=== PATIENT | female | born 1980 | race Caucasian/White ===

== ENCOUNTER 2020-03-03 14:58 | Outpatient (CLI) | payer OTHER, SELFPAY ==
--- NOTE | ~2020-03-03 | MM_ITS ---
EXAMINATION: MM screening tim BI w priyanka HISTORY: Screening mammogram TECHNIQUE: Craniocaudal and mediolateral oblique 3-D tomosynthesis images including implant displaced views were obtained and synthetic 2-D images were generated. CAD analysis was submitted and interpre yony. COMPARISON: Comparison to multiple prior studies sequentially, with oldest reviewed study dated 10/2019. BREAST PARENCHYMAL COMPOSITION: The breasts are heterogenously dense, which may obscure small masses FINDINGS: There are bilateral subpectoral silicone implants. There is no evidence of suspicious mass, calcification, or architectural distortion to suggest malignancy in either breast. There has been no suspicious interval change. IMPRESSION: 1. No mammographic evidence of malignancy. 2. Recommend routine screening mammography in one year. BI-RADS Category 1: Negative Reviewed, dictated and finalized at location A.
== END 2020-03-03 14:59 | disposition home or self-care (01) ==
LOC: ANHIMG 15:03
PROVIDERS: PCP Family Medicine; Visit Provider Family Medicine
DX: Z12.31 Encounter for screening mammogram for malignant neoplasm of breast (principal)
CPT/HCPCS: 77063; 77067

== ENCOUNTER → 2020-05-12 11:10 | Outpatient (CLI) | payer OTHER, SELFPAY ==
--- NOTE | ~2020-05-12 | XR_ITS ---
XR hip LT min 3V w AP pelvis DATE: 05/12/2020 11:22 INDICATION: Left hip pain for 5 months. No injury. TECHNIQUE: AP pelvis. AP and lateral views of left hip COMPARISON: None FINDINGS: No pelvic fracture or bone destruction. The pubic symphysis and sacral iliac joints are int act. Hip joint spaces are symmetric and well preserved. No fracture, dislocation, avascular necrosis or bone destruction of the left hip. IMPRESSION: No significant abnormality Reviewed, dictated and finalized at location A. IMPRESSION: No significant abnormality
== END ==
PROVIDERS: PCP Family Medicine; Visit Provider Family Medicine
DX: M25.559 Pain in unspecified hip (principal)
CPT/HCPCS: 73502

== ENCOUNTER → 2021-09-19 07:58 | Outpatient (CLI) | payer OTHER, SELFPAY ==
--- NOTE | ~2021-09-19 | MR_ITS ---
EXAMINATION: MR brain/brain stem wo con DATE: 09/19/2021 08:39 INDICATION: Migraine headache. TECHNIQUE: Magnetic resonance imaging (MRI) of the brain and brainstem was performed without intraven ous contrast. Sequences included sagittal and axial T1-weighted FSE, axial diffusion-weighted FS EPI, axial T2*-weighted GRE, axial T2-weighted FLAIR Propeller, and axial T2-weighted Propeller. Apparent diffusion coefficient (ADC) maps were created. COMPARISON: None. FINDINGS: There is no intracranial hemorrhage, acute infarction, or abnormal intracranial mass lesion . The ventricles are normal in size. There is mild mucosal thickening in the paranasal sinuses. The o rbits are normal. The mastoid air cells are normal. IMPRESSION: 1. Normal brain. Reviewed, dictated and finalized at location A. REDUCER IMPRESSION: 1. Normal brain.
== END ==
PROVIDERS: PCP Family Medicine; Visit Provider Family Medicine
DX: G43.109 Migraine with aura, not intractable, without status migrainosus (principal); R48.2 Apraxia
CPT/HCPCS: 70551

== ENCOUNTER 2022-04-29 14:35 | Outpatient (CLI) | payer OTHER, SELFPAY ==
--- NOTE | ~2022-04-29 | MM_ITS ---
EXAMINATION: MM scrn tim implant BI w priyanka HISTORY: Screening mammogram TECHNIQUE: Craniocaudal and mediolateral oblique 3-D tomosynthesis images with implant displacement a nd synthetic 2-D images were generated. Craniocaudal and mediolateral oblique views of the breasts wi thout implant displacement were obtained using full field digital mammography. CAD analysis was submi tted and interpreted. COMPARISON: 03/03/2020 bilateral implant screening mammogram BREAST PARENCHYMAL COMPOSITION: The breasts are extremely dense, which lowers the sensitivity of mamm ography. FINDINGS: Status post bilateral augmentation mammoplasty. There is no evidence of suspicious mass, ca lcification, or architectural distortion to suggest malignancy in either breast. There has been no blake spicious interval change. IMPRESSION: 1. No mammographic evidence of malignancy. 2. Recommend routine screening mammography in one year. BI-RADS Category 1: Negative Reviewed, dictated and finalized at location B.
== END 2022-04-29 14:36 | disposition home or self-care (01) ==
PROVIDERS: PCP Family Medicine; Visit Provider Nurse Practitioner Obstetrics & Gynecology
DX: Z12.31 Encounter for screening mammogram for malignant neoplasm of breast (principal)
CPT/HCPCS: 77063; 77067

== ENCOUNTER → 2022-05-11 12:35 | Outpatient (CLI) | payer OTHER, SELFPAY ==
--- NOTE | ~2022-05-11 | US_ITS ---
EXAMINATION: US pelvic complete w TV DATE: 05/11/2022 13:18 INDICATION: Pelvic and perineal pain Comparison:No prior studies for comparison. TECHNIQUE: Multiple transabdominal and endovaginal sonographic images of the pelvis performed. FINDINGS: The uterus measures 10.3 x 4.3 x 5.1 cm. The endometrial complex measures 5 mm. There is an isoechoic mass of the uterus anteriorly measuring 2.1 cm, most likely benign fibroid. There are nabo thian cysts. The right ovary measures 3.6 x 2.1 x 2 cm and the left ovary measures 3.1 x 1.6 x 2.4 cm. There are small follicles in each ovary. There are small bilateral ovarian cyst measuring 1.7 cm on the right a nd 1.9 cm on the left. Normal doppler signal in both ovaries. There is no free fluid in the pelvis. There are no abnormal masses seen on either side. IMPRESSION: 1. Enlarged uterus containing 2.1 cm isoechoic mass, most likely a fibroid. 2: Small bilateral ovarian cysts. Reviewed, dictated and finalized at location A.
== END ==
PROVIDERS: PCP Family Medicine; Visit Provider Nurse Practitioner Obstetrics & Gynecology
DX: R10.2 Pelvic and perineal pain (principal); N83.201 Unspecified ovarian cyst, right side; N83.202 Unspecified ovarian cyst, left side
CPT/HCPCS: 76830; 76856

== ENCOUNTER → 2023-02-16 14:04 | Outpatient (CLI) | payer OTHER, SELFPAY ==
--- NOTE | ~2023-02-16 | XR_ITS ---
XR shoulder LT min 2V 02/16/2023 14:15 INDICATION: Left shoulder pain PROCEDURE: 4 views left shoulder COMPARISON: No prior studies for comparison. FINDINGS: Fracture, dislocation or subluxation is not identified. The soft tissues appear within norm al limits. No foreign bodies are identified. IMPRESSION: 1: NO ACUTE BONE OR JOINT ABNORMALITY IDENTIFIED. Reviewed, dictated and finalized at location B.
== END ==
PROVIDERS: PCP Family Medicine; Visit Provider Family Medicine
DX: M25.512 Pain in left shoulder (principal)
CPT/HCPCS: 73030

== ENCOUNTER → 2023-02-25 09:11 | Outpatient (CLI) | payer OTHER, SELFPAY ==
--- NOTE | ~2023-02-25 | MR_ITS ---
MRI of the left shoulder Technique: Axial proton-density fat-sat images, coronal proton density fat-sat and T2 fat-sat images, and sagittal T1-weighted and T2 fat-sat images were acquired. Clinical History: Injury Findings: There is mild AC joint degenerative change. Coracoclavicular, coracoacromial, and coracohum eral ligaments are intact. Supraspinatus and infraspinatus tendons are intact, without partial or full-thickness tear. Subscapul zaida tendon is intact. Tendon of the long head of the biceps is intact. Glenoid labrum is intact, without evidence of tear. Inferior glenohumeral ligament is intact. No effusion or degenerative change at the glenohumeral join t. No significant fluid distention of the subacromial/subdeltoid bursa. No muscle atrophy or edema. Impression: No significant abnormality identified. Reviewed, dictated and finalized at [facility]. Impression: No significant abnormality identified.
== END ==
PROVIDERS: PCP Family Medicine; Visit Provider Family Medicine
DX: S46.002A Unspecified injury of muscle(s) and tendon(s) of the rotator cuff of left shoulder, initial encounter (principal); X58.XXXA Exposure to other specified factors, initial encounter
CPT/HCPCS: 73221

== ENCOUNTER 2024-03-06 12:30 | Outpatient (RCR) | payer OTHER, SELFPAY ==
--- NOTE | 2023-12-13 17:00 | PTOPEVAL1 ---
Assessment and note entered by Jaron Zelaya, PT Evaluation Information Assessment Status Evaluation Diagnosis Left shoulder pain Onset December 2020 Subjective Information Reports that at initial time of injury she hurt her neck and moved into arm pain. Unsure if they were directly related. States that she has ignored it over the years but she has been getting massages to help. Over the course of the last three months she has not been able to improve symptoms. She is a side sleeper and wakes up with pain. Driving hurts and certain exercises she cannot do. She had an MRI last summer showing mild arthritis. Reports that she will occasional get a cold and numb hand at her side. Reported Pain Level Pain Score 1: Self Report Assessment PT Clinical Summary Patient presents with signs and symptoms consistent with frozen shoulder. She has active range of motion equal to passive ROM with pain at end range. Patient has weakness but not significant enough to reflect severe muscle damage . Limited more by pain. Will benefit from skilled therapy to address deficits to improve functional reach and restore age appropriate functional shoulder motion. Plan of Care Interventions Electrical Stimulation,Hot Pack/Cold Pack,Manual Therapy,Neuro Re-education,Therapeutic Activities, Therapeutic Exercise PT Services Indicated Yes Treatment Frequency and 2x/week for 10 visits Duration These treatments will address the objective and functional deficits as defined above. The patient will be advanced safely and appropriately in order for the patient to progress towards his/her prior level of function. Additional exercises will be introduced and as well as a comprehensive home exercise program upon discharge, if needed, ?to ensure carryover of functional gains achieved in the clinic. This treatment plan has been reviewed and agreement upon by the patient.
--- NOTE | 2023-12-13 17:00 | OPREHPOC ---
Outpatient Therapy Plan of Care This is a Multidisciplinary Plan of Care that may contain components documented by all disciplines (PT, OT, and ST.) PT Problem 1 PT Problem #1 Knowledge Deficit PT Goal 1 Goal Independent with HEP Target Visit 4 PT Problem 2 PT Problem #2 Impaired Range of Motion PT Goal 1 Goal Achieve 170 degrees of L shoulder flexion ROM to improve active functional reach Target Visit 10 PT Goal 2 Goal Achieve 80 degrees of left shoulder external rotation to improve dressing and functional self care Target Visit 10 PT Problem 3 PT Problem #3 Impaired Range of Motion PT Goal 1 Goal Achieve 90 degrees of abduction to achieve anatomical testing position to restore functional rotation ability Target Visit 10 PT Problem 4 PT Problem #4 Impaired Strength PT Goal 1 Goal Improve gross L shoulder strength to 4+/5 to improve stability for functional lifting Target Visit 10
--- NOTE | 2024-01-12 08:34 | PCPTNOTE ---
Patient unable to been seen January 10 due to therapist out with illness.
--- NOTE | 2024-01-20 17:03 | PTOPPROG ---
Assessment and note entered by Jaron Zelaya, PT Evaluation Information Assessment Status Progress Diagnosis Left shoulder pain Onset December 2020 Subjective Information Reports that she has been working very hard on mobility and is seeing progress. Feels a lot more comfortable with stretching and mobilization activity. She feels she is able to improve her self care but is not quite where she want to be. Would like to continue therapy. Assessment PT Clinical Summary Patient is making excellent RM and functional progress at this time. We have seen in proved functional mobility of the shoulder and overall functional reach. Will continue to benefit from skilled therapy to address remaining deficits and progress in self care. Plan of Care Interventions Electrical Stimulation,Hot Pack/Cold Pack,Manual Therapy,Neuro Re-education,Therapeutic Activities, Therapeutic Exercise PT Services Indicated Yes Treatment Frequency and 2x/week for 10 visits Duration These treatments will address the objective and functional deficits as defined above. The patient will be advanced safely and appropriately in order for the patient to progress towards his/her prior level of function. Additional exercises will be introduced and as well as a comprehensive home exercise program upon discharge, if needed, ?to ensure carryover of functional gains achieved in the clinic. This treatment plan has been reviewed and agreement upon by the patient.
--- NOTE | 2024-01-20 17:03 | OPREHPOC ---
Outpatient Therapy Plan of Care This is a Multidisciplinary Plan of Care that may contain components documented by all disciplines (PT, OT, and ST.) PT Problem 1 PT Problem #1 Knowledge Deficit PT Goal 1 Goal Independent with HEP Target Visit 4 Progress Met PT Problem 2 PT Problem #2 Impaired Range of Motion PT Goal 1 Goal Achieve 170 degrees of L shoulder flexion ROM to improve active functional reach Target Visit 18 Progress Partially Met PT Goal 2 Goal Achieve 80 degrees of left shoulder external rotation to improve dressing and functional self care Target Visit 18 Progress Met PT Problem 3 PT Problem #3 Impaired Range of Motion PT Goal 1 Goal Achieve 90 degrees of abduction to achieve anatomical testing position to restore functional rotation ability Target Visit 10 Progress Met PT Problem 4 PT Problem #4 Impaired Strength PT Goal 1 Goal Improve gross L shoulder strength to 4+/5 to improve stability for functional lifting Target Visit 18 Progress Partially Met
--- NOTE | 2024-03-06 16:44 | PTOPDC ---
Assessment and note entered by Jaron Zelaya, PT Evaluation Information Assessment Status Discharge Diagnosis Left shoulder pain Onset December 2020 Subjective Information Reports that she has seen remarkable progress at this time. Feels a lot more comfortable with ADLs and self care. She really only gets pain when reaching overhead repeatedly or doing activities that she has not done consistently for a long time . She has pulleys at home and feels comfortable with gross HEP to continue to progressing motion and prevent regression. Reported Pain Level Pain Score 0: Self Report Assessment PT Clinical Summary Patient has met all goals for therapy at this time . She continues to show some limitation in external rotation and will continue to address through home exercise program. Plan of Care PT Services Indicated D/C to HEP
== END 2024-03-07 09:36 | disposition home or self-care (01) ==
LOC: ANHGOSHPT 12:30
PROVIDERS: PCP Family Medicine; Visit Provider Family Medicine
DX: M25.512 Pain in left shoulder (principal); G89.29 Other chronic pain
CPT/HCPCS: 97110; 97140; 97161; 97530

== ENCOUNTER 2024-05-02 06:59 | Day surgery (SDC) | payer OTHER, SELFPAY ==
[2024-04-10 13:41] VITALS: BMI 20.1
--- NOTE | 2024-05-01 13:13 | WPDANESEPPF ---
Anes - Initial Pre Proc Eval Procedure: Operation Date: 05/02/24 09:00 Proposed Procedures p Screening Colonoscopy - Remington Otto MD Date/Time: 05/01/24 13:13 Surgeon: Remington Otto MD Pre Op Diagnosis: Neoplasm Screening Patient Data Age: 43 Gender: F Height: 1.65 m Weight: 54.8 kg Allergies Allergy/AdvReac Type Severity Reaction Status Date / Time estradiol AdvReac Unknown Migraine Verified 05/02/24 07:43 fluoxetine AdvReac Unknown headache Verified 05/02/24 07:43 propoxyphene AdvReac Vomiting Verified 05/02/24 07:43 Home Medications Medication Instructions Recorded Confirmed Type cholecalciferol (vitamin D3) 25 100 mcg PO DAILY 03/04/21 05/02/24 History mcg/drop (1,000 unit/drop) oral drops vitamin B complex (B 1 tablet PO DAILY 09/08/21 04/24/24 History Complex-Vitamin B12 tablet) polypodium leucotomos extract 120 1 cap PO DAILY 03/29/23 05/02/24 History mg-niacinamide 250 mg capsule ([facility] Advanced) fluticasone propionate 50 1 spray intranasal DAILY #16 grams 11/16/23 05/02/24 Rx mcg/actuation nasal spray,suspension (Flonase Allergy Relief) sumatriptan succinate 50 mg tablet See Rx Instructions .Route 12/07/23 05/02/24 Rx .COMPLEX #27 tabs topiramate 50 mg tablet 100 mg PO QHS #180 tabs 02/09/24 04/24/24 Rx fexofenadine 180 mg tablet 180 mg PO DAILY 03/27/24 05/02/24 History ([facility] All[facility]) methylphenidate HCl 36 mg 36 mg PO QAM #30 tabs 03/27/24 05/02/24 Rx tablet,extended release 24 hr (Concerta) [id number] 1 tablet PO DAILY 03/27/24 05/02/24 History fumarate 18 mg-folic acid 400 mcg tablet (One-A-Day Women's Complete) Lactobacillus 1 cap PO DAILY 04/24/24 05/02/24 History acidophilus-Bifidobac.animalis 2.5 billion cell capsule (Daily Probiotic) buspirone 10 mg tablet 10 mg PO TID 04/24/24 05/02/24 History magnesium 500 mg tablet 500 mg PO DAILY 04/24/24 05/02/24 History Patient hx anesthesia problems: none Family hx anesthesia problems: none Results Review: All pre-operative results and documents have been reviewed as part of the pre-operative evaluation. [facility], LAT[facility] Past Medical History Medical History (Updated 05/02/24 @ 08:06 by Remington Otto MD) Acute telogen effluvium ADHD Bursitis of right hip GERD without esophagitis Herpes simplex without mention of complication Other ventral hernia without mention of obstruction or gangrene Surgical History Surgical History (Updated 05/01/24 @ 13:29 by Wojciech Lewis DO) History of tonsillectomy Family History Family History Mother Depression Hypertension DVT (deep venous thrombosis) Father Hypertension Other Cerebrovascular accident Diabetes mellitus Family history of allergic disorder Family history of cardiovascular disease Social History Social History (Updated 03/27/24 @ 10:49 by Mattie Bhatia MA) Smoking status: Never smoker Second hand tobacco smoke exposure: Yes Alcohol intake: current Alcohol use details: 2 per month Substance use: never Substance use type: does not use Lack of Transportation: No Lack of Food: Never True Current Housing: I Have Housing Concerned About Future Housing: No Difficulty Paying Gas/Electric Bills: No Difficulty Paying for Meds: No Currently Unemployed: No Education: Master's Degree or Higher Difficulty w/ Childcare or Family Care: No Living arrangements: with family Spiritual care concerns: No Anes - Eval Final PreProcedure Day of Procedure 05/01/24 13:13 Patient weight: normal Heart: regular rate and rhythm Lungs: clear to auscultation and normal air movement Airway: Mallampati scale class II Neurological: alert and oriented Last oral intake: >/= 8 hours ASA classification: II Emergent: no Anesthetic plan: proceed Anesthesia type and monitoring: general GIVS and
[2024-05-02 07:54] VITALS: BP 93/61; PULSE 82; RESP 16; TEMP 36.7; O2SAT 100; BMI 19.7
--- NOTE | 2024-05-02 08:05 | PM.HPGS ---
History of Present Illness History of Present Illness Consent: Risks, benefits, and alternatives have been discussed and questions answered. Patient agrees to proceed with procedure. Chief complaint: Neoplasm Screening Narrative: Caitlin Perdue is a 43 year old female presents for screening colonoscopy. Patient's current weight appetite and bowel movements are normal. Patient denies abdominal pain. Has had no bleeding. Family history noncontributory. Review of Systems Review of Systems: All systems reviewed & are unremarkable except as noted in HPI and below PMFSH Past Medical History Medical History (Updated 05/02/24 @ 08:06 by Remington Otto MD) Acute telogen effluvium ADHD Bursitis of right hip GERD without esophagitis Herpes simplex without mention of complication Other ventral hernia without mention of obstruction or gangrene Surgical History Surgical History (Updated 05/01/24 @ 13:29 by Wojciech Lewis DO) History of tonsillectomy Family History Family History Mother Depression Hypertension DVT (deep venous thrombosis) Father Hypertension Other Cerebrovascular accident Diabetes mellitus Family history of allergic disorder Family history of cardiovascular disease Social History Social History (Updated 03/27/24 @ 10:49 by Mattie Bhatia MA) Smoking status: Never smoker Second hand tobacco smoke exposure: Yes Alcohol intake: current Alcohol use details: 2 per month Substance use: never Substance use type: does not use Lack of Transportation: No Lack of Food: Never True Current Housing: I Have Housing Concerned About Future Housing: No Difficulty Paying Gas/Electric Bills: No Difficulty Paying for Meds: No Currently Unemployed: No Education: Master's Degree or Higher Difficulty w/ Childcare or Family Care: No Living arrangements: with family Spiritual care concerns: No Meds Home Medications and Allergies Home Medications Medication Instructions Recorded Confirmed Type cholecalciferol (vitamin D3) 25 100 mcg PO DAILY 03/04/21 05/02/24 History mcg/drop (1,000 unit/drop) oral drops vitamin B complex (B 1 tablet PO DAILY 09/08/21 04/24/24 History Complex-Vitamin B12 tablet) polypodium leucotomos extract 120 1 cap PO DAILY 03/29/23 05/02/24 History mg-niacinamide 250 mg capsule ([facility] Advanced) fluticasone propionate 50 1 spray intranasal DAILY #16 grams 11/16/23 05/02/24 Rx mcg/actuation nasal spray,suspension (Flonase Allergy Relief) sumatriptan succinate 50 mg tablet See Rx Instructions .Route 12/07/23 05/02/24 Rx .COMPLEX #27 tabs topiramate 50 mg tablet 100 mg PO QHS #180 tabs 02/09/24 04/24/24 Rx fexofenadine 180 mg tablet 180 mg PO DAILY 03/27/24 05/02/24 History ([facility] Allergy) methylphenidate HCl 36 mg 36 mg PO QAM #30 tabs 03/27/24 05/02/24 Rx tablet,extended release 24 hr (Concerta) [id number]-[id number] 1 tablet PO DAILY 03/27/24 05/02/24 History fumarate 18 mg-folic acid 400 mcg tablet (One-A-Day Women's Complete) Lactobacillus 1 cap PO DAILY 04/24/24 05/02/24 History acidophilus-Bifidobac.animalis 2.5 billion cell capsule (Daily Probiotic) buspirone 10 mg tablet 10 mg PO TID 04/24/24 05/02/24 History magnesium 500 mg tablet 500 mg PO DAILY 04/24/24 05/02/24 History Allergies Allergy/AdvReac Type Severity Reaction Status Date / Time estradiol AdvReac Unknown Migraine Verified 05/02/24 07:43 fluoxetine AdvReac Unknown headache Verified 05/02/24 07:43 propoxyphene AdvReac Vomiting Verified 05/02/24 07:43 Vital Signs Vital Signs - 24 hr 05/02/24 07:54 Temperature 98.1 F Pulse Rate 82 Respiratory Rate 16 Blood Pressure 93/61 L Pulse Oximetry 100 Oxygen Delivery Room Air Exam Narrative: Physical exam reveals patient to be alert. Signs stable. HEENT exam is unrem
[2024-05-02] MEDS: LACTATED RINGERS 1,000 ML 150 ML IV CONT (08:11)
[2024-05-02 09:20] VITALS: BP 92/48; PULSE 84; RESP 14; O2SAT 100
[2024-05-02 09:30] VITALS: BP 97/56; PULSE 66; RESP 15; O2SAT 100
--- NOTE | 2024-05-02 09:31 | WPDANESPN ---
Anes - Prog Note Post-Op Date/Time: 05/02/24 09:31 Cardiovascular status: normal Respiratory status: normal Airway patency: baseline Mental status: baseline Post-Op hydration status: normal Vital Signs: Last Vital Signs Temp 36.7 C 05/02/24 07:54 Pulse 84 05/02/24 09:20 Resp 14 05/02/24 09:20 BP 92/48 L 05/02/24 09:20 Pulse Ox 100 05/02/24 09:20 O2 Del Method Room Air 05/02/24 09:20 Pain Score (VAS): 0 Post-procedural complaints: none Patient Feedback: Patient satisfied with anesthetic care. Other Findings: Patient vital signs back to baseline. Patient denies nausea and vomiting. Patient's pain under control. Patient OK for discharge.
[2024-05-02 09:40] VITALS: BP 96/61; PULSE 66; RESP 15; O2SAT 100
== END 2024-05-02 10:00 | disposition home or self-care (01) ==
PROVIDERS: PCP Family Medicine; Visit Provider Internal Medicine Gastroenterology
PROC: 0DJD8ZZ Inspection of Lower Intestinal Tract, Via Natural or Artificial Opening Endoscopic (ICD-10-PCS; CPT 45378; principal; 2024-05-02 09:00)
DX: Z12.11 Encounter for screening for malignant neoplasm of colon (principal); D12.5 Benign neoplasm of sigmoid colon; K57.30 Diverticulosis of large intestine without perforation or abscess without bleeding; K64.8 Other hemorrhoids
CPT/HCPCS: 45385

== ENCOUNTER 2024-05-02 12:22 | Outpatient (NON) | payer OTHER, SELFPAY | END 2024-05-03 10:11 | disposition home or self-care (01) | PROVIDERS: PCP Family Medicine; Visit Provider Internal Medicine Gastroenterology | DX: K63.5 Polyp of colon (principal) | CPT/HCPCS: 88305 ==

== ENCOUNTER 2024-07-19 15:30 | Outpatient (CLI) | payer OTHER, SELFPAY ==
--- NOTE | ~2024-07-19 | MM_ITS ---
EXAMINATION: MM scrn tim implant BI w priyanka HISTORY: Screening mammogram TECHNIQUE: Craniocaudal and mediolateral oblique 3-D tomosynthesis images with implant displacement a nd synthetic 2-D images were generated. Craniocaudal and mediolateral oblique views of the breasts wi thout implant displacement were obtained using full field digital mammography. CAD analysis was submi tted and interpreted. COMPARISON: Comparison to multiple prior studies sequentially, with oldest reviewed study dated 10/2019. BREAST PARENCHYMAL COMPOSITION: Dense: The breasts are extremely dense, which lowers the sensitivity of mammography. FINDINGS: There is a focal asymmetry laterally in the left breast on CC view, not definitely seen on prior study. The right breast is stable. IMPRESSION: 1. Focal left breast asymmetry laterally, posterior third, seen on CC view only. 2. Additional mammographic views and possible breast ultrasound are recommended. BI-RADS Category 0: Incomplete: Needs additional imaging evaluation. Reviewed, dictated and finalized at location B. IMPRESSION: 1. Focal left breast asymmetry laterally, posterior third, seen on CC view only . 2. Additional mammographic views and possible breast ultrasound are recommended . BI-RADS Category 0: Incomplete: Needs additional imaging evaluation.
== END 2024-07-19 15:31 | disposition home or self-care (01) ==
LOC: ANHIMG 15:31
PROVIDERS: PCP Family Medicine; Visit Provider Obstetrics & Gynecology
DX: Z12.31 Encounter for screening mammogram for malignant neoplasm of breast (principal); R92.8 Other abnormal and inconclusive findings on diagnostic imaging of breast
CPT/HCPCS: 77063; 77067

== ENCOUNTER 2024-08-08 12:52 | Outpatient (CLI) | payer OTHER, SELFPAY ==
--- NOTE | ~2024-08-08 | MMUS_ITS ---
EXAMINATION: MM diagnostic tim LT w priyanka, US breast LT limited HISTORY: Follow-up left breast asymmetry TECHNIQUE: Additional 3-D tomosynthesis images of the left breast were performed and synthetic 2-D im ages were generated. CAD analysis was submitted and interpreted. High resolution Limited left breast ultrasound was performed. COMPARISON: 07/19/2024 BREAST PARENCHYMAL COMPOSITION: Dense: The breasts are extremely dense, which lowers the sensitivity of mammography. FINDINGS: MAMMOGRAPHIC FINDINGS: There is persistent asymmetry laterally in the left breast on CC view, not confirmed on medial latera l view. ULTRASOUND: Limited left breast ultrasound,: At 12:00, 5 cm from the nipple there is an irregular shaped heteroge neous mass with parallel orientation measuring 8 x 6 x 5 mm. No significant posterior features. There is internal vascularity. IMPRESSION: 1. Complex 8 mm left breast mass at 12:00, 5 cm from the nipple. 2. Ultrasound-guided left breast biopsy recommended. BI-RADS category 4, suspicious findings. Reviewed, dictated and finalized at location B. 1ST PRESSMAN IMPRESSION: 1. Complex 8 mm left breast mass at 12:00, 5 cm from the nipple. 2. Ultrasound-guided left breast biopsy recommended. BI-RADS category 4, suspicious findings.
== END 2024-08-08 12:53 | disposition home or self-care (01) ==
PROVIDERS: PCP Obstetrics & Gynecology; Visit Provider Family Medicine
DX: R92.8 Other abnormal and inconclusive findings on diagnostic imaging of breast (principal)
CPT/HCPCS: 76642; 77061; 77065; G0279

== ENCOUNTER 2024-09-03 08:44 | Outpatient (CLI) | payer OTHER, SELFPAY ==
--- NOTE | ~2024-09-03 | MMUS_ITS ---
MM post biopsy diagnostic LT, US breast biopsy LT w image EXAMINATION: US GUIDED NEEDLE BIOPSY WITH VACUUM ASSISTANCE DATE: 09/03/2024 09:53 TUBE BENDER HAND INDICATION: Left breast mass seen on recent examination. Ultrasound-guided core biopsy is requested to evaluate for malignancy. BREAST PARENCHYMAL COMPOSITION: Dense: The breasts are heterogeneously dense, which may obscure small masses TECHNIQUE AND FINDINGS: The risks and potential benefits of the procedure were discussed with the patient, and written inform ed consent was obtained. After sterile preparation of the left breast, 1% lidocaine was utilized for local anesthesia. 1% lidocaine with epinephrine was used for deep anesthesia. A 10G vacuum-assisted biopsy gun needle was advanced through to the outer edge of the region of inter est from a superior approach utilizing sonographic guidance. A total of three tissue core samples we re obtained through the lesion. An Inrad tissue marker clip was then placed at the biopsy site. Hemo stasis was achieved. The patient tolerated procedure well and there was no evidence of immediate complication. The patien t was given verbal instructions partly is from the department. Left breast mammograms to document ti ssue marker clip placement. The tissue samples were submitted to surgical pathology for histologic an alysis. IMPRESSION: 1. Successful ultrasound-guided vacuum-assisted biopsy of left breast mass with post procedure mammo gram for marker placement. Please refer to pathology report for histologic analysis. Reviewed, dictated and finalized at location B. BENDER HAND IMPRESSION: 1. Successful ultrasound-guided vacuum-assisted biopsy of left breast mass wit h post procedure mammogram for marker placement. Please refer to pathology repo rt for histologic analysis.
== END 2024-09-03 08:45 | disposition home or self-care (01) ==
PROVIDERS: PCP Family Medicine; Visit Provider Family Medicine
DX: R92.8 Other abnormal and inconclusive findings on diagnostic imaging of breast (principal); D24.2 Benign neoplasm of left breast
CPT/HCPCS: 19083; 77065; 88305; A4648

== ENCOUNTER 2024-11-09 01:26 | Day surgery (SDC) | payer OTHER, SELFPAY ==
[2024-10-25 15:14] VITALS: BMI 19.6
--- OUTSIDE RECORDS SUMMARY | 2024-11-09 01:29 | XMS_ITS | Patient Health Record ---
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 Role Phone Jaskaran Underwood Unavailable [phone] ALLERGIES No Known Allergies REASON FOR REFERRAL No Information MEDICATIONS Medication SIG (Take, Route, Frequency, Duration) Notes Start Date End Date Status Vitamin C Active busPIRone HCl 10 MG 1 tablet Orally Twic e a day Active SUMAtriptan Succinate 50 MG 1 tablet at least 2 hours between doses as needed Orally Twice a day Active Topiramate 100 MG 1 tablet Orally Once a day Active Concerta 36 MG 1 tablet in the morn ing Orally Once a day Active Methocarbamol 500 MG 1.5 tablets Orally every 4 hrs Active Vitamin D 50 MCG (1999) 1 tablet Oral ly Once a day Active Flonase Active PROBLEMS Problem Type ICD Code Onset Dates Problem Status W/U Status Risk SNOMED Code Notes Problem Cervical radiculopathy (M54.12) Active confirmed Cervical radiculopathy (48710705) Problem 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
[2024-11-09 09:10] VITALS: BP 108/64; PULSE 107; RESP 20; TEMP 36.4; O2SAT 100; BMI 19.6
[2024-11-09] MEDS: LACTATED RINGERS 1,000 ML 150 ML IV CONT (09:32)
--- NOTE | 2024-11-09 09:50 | PM.IMHP ---
H&P: HPI History of Present Illness Date/Time: 11/09/24 09:50 Chief Complaint: GERD Narrative: the patient has suffer from heartburn for several years, especially when drinking coffee or spicy food. He has recently started on pantoprazole 40 mg q.d., with significant relief of her symptoms. She is referred for EGD. Review of Systems Review of Systems: All systems reviewed & are unremarkable except as noted in HPI and below PMFSH Past Medical History Medical History (Updated 09/12/24 @ 17:10 by Glenny Sloan MD) ADHD Acute telogen effluvium Bursitis of right hip GERD without esophagitis Herpes simplex without mention of complication Other ventral hernia without mention of obstruction or gangrene Surgical History Surgical History (Updated 05/01/24 @ 13:29 by Wojciech Lewis DO) History of tonsillectomy Family History Family History Mother Depression Hypertension DVT (deep venous thrombosis) Father Hypertension Other Cerebrovascular accident Diabetes mellitus Family history of allergic disorder Family history of cardiovascular disease Social History Social History (Updated 03/27/24 @ 10:49 by Mattie Bhatia MA) Smoking status: Never smoker Second hand tobacco smoke exposure: Yes Alcohol intake: current Alcohol use details: 2 per month Substance use: never Substance use type: does not use Lack of Transportation: No Lack of Food: Never True Current Housing: I Have Housing Concerned About Future Housing: No Difficulty Paying Gas/Electric Bills: No Difficulty Paying for Meds: No Currently Unemployed: No Education: Master's Degree or Higher Difficulty w/ Childcare or Family Care: No Living arrangements: with family Spiritual care concerns: No Meds Home Medications and Allergies Home Medications ?Medication ?Instructions ?Recorded ?Confirmed ?Type polypodium leucotomos extract 120 1 cap PO DAILY 03/29/23 11/09/24 History mg-niacinamide 250 mg capsule ([facility]) fexofenadine 180 mg tablet 180 mg PO DAILY 03/27/24 11/09/24 History ([facility]) [id number] 1 tablet PO DAILY 03/27/24 11/09/24 History fumarate 18 mg-folic acid 400 mcg tablet (One-A-Day [facility] Complete) Lactobacillus 1 cap PO DAILY 04/24/24 11/09/24 History acidophilus-Bifidobac.animalis 2.5 billion cell capsule (Daily Probiotic) topiramate 50 mg tablet 100 mg (2 x 50 mg) PO QHS #180 tabs 08/07/24 11/09/24 Rx buspirone 10 mg tablet See Rx Instructions .Route 09/17/24 11/09/24 Rx .COMPLEX #270 tabs pantoprazole 40 mg tablet,delayed 40 mg PO QAM #30 tabs 10/18/24 11/09/24 Rx release sumatriptan succinate 50 mg tablet See Rx Instructions .Route 10/18/24 11/09/24 Rx .COMPLEX #27 tabs Concerta 36 mg tablet,extended 36 mg PO QAM #30 tabs 10/23/24 11/09/24 Rx release (methylphenidate HCl) fluticasone propionate 50 1 spray intranasal DAILY PRN 10/25/24 10/25/24 History mcg/actuation nasal allergy symptoms spray,suspension (Flonase Allergy Relief) sucralfate 1 gram tablet (Carafate) 1 g PO .COMPLEX PRN acid reflux 10/25/24 11/09/24 History Allergies Allergy/AdvReac Type Severity Reaction Status Date / Time estradiol AdvReac Unknown Migraine Verified 11/09/24 09:14 fluoxetine AdvReac Unknown headache Verified 11/09/24 09:14 propoxyphene AdvReac Vomiting Verified 11/09/24 09:14 Vital Signs Vital Signs - 24 hr 11/09/24 09:10 Temperature 97.5 F L Pulse Rate 107 H Respiratory Rate 20 Blood Pressure 108/64 Pulse Oximetry 100 Oxygen Delivery Room Air Exam Const: General: cooperative and healthy appearing Resp: Effort & Inspection: normal respiratory effort and able to speak in complete sentences Auscultation: clear to auscultation bilaterally Cardio: Rate: regular rate Rhythm: regular rhythm GI: Inspection: normal to inspection GI Palp: No No hepatosplenomegaly present Auscultation: normal bowel sounds Rectal Exam: deferred Skin: General skin exam: normal color Psych: Appearance: grossly normal Mental Status: mental status grossly normal Assessment and Plan Assessment and plan (1) GERD with esophagitis: Code(s): K21.00 - Gastro-esophageal reflux disease with esophagitis, without bleeding Status: Acute Assessment and Plan: The patient is deemed a good candidate for the procedure. Consent signed. Will proceed.
[2024-11-09 09:55] LABS: BEDSIDEPREGUCG Negative (Negative)
--- NOTE | 2024-11-09 10:10 | P.PNAN_ITS ---
Anes - Initial Pre Proc Eval Procedure: Operation Date: 11/09/24 10:00 Proposed Procedures p Esophagogastroduodenoscopy - Sridhar Mojica MD Date/Time: 11/09/24 10:10 Surgeon: Sridhar Mojica MD Pre Op Diagnosis: GERD Patient Data Age: 44 Gender: F Height: 1.65 m Weight: 53.5 kg Last Vital Signs Temp 36.4 C L 11/09/24 09:10 Pulse 107 H 11/09/24 09:10 Resp 20 11/09/24 09:10 BP 108/64 11/09/24 09:10 Pulse Ox 100 11/09/24 09:10 O2 Del Method Room Air 11/09/24 09:10 Allergies Allergy/AdvReac Type Severity Reaction Status Date / Time estradiol AdvReac Unknown Migraine Verified 11/09/24 09:14 fluoxetine AdvReac Unknown headache Verified 11/09/24 09:14 propoxyphene AdvReac Vomiting Verified 11/09/24 09:14 Home Medications ?Medication ?Instructions ?Recorded ?Confirmed ?Type polypodium leucotomos extract 120 1 cap PO DAILY 03/29/23 11/09/24 History mg-niacinamide 250 mg capsule ([facility]) fexofenadine 180 mg tablet 180 mg PO DAILY 03/27/24 11/09/24 History ([facility]) erzfodoznobn-pqiolcdn-mket 1 tablet PO DAILY 03/27/24 11/09/24 History fumarate 18 mg-folic acid 400 mcg tablet (One-A-Day [facility] Complete) Lactobacillus 1 cap PO DAILY 04/24/24 11/09/24 History acidophilus-Bifidobac.animalis 2.5 billion cell capsule (Daily Probiotic) topiramate 50 mg tablet 100 mg (2 x 50 mg) PO QHS #180 tabs 08/07/24 11/09/24 Rx buspirone 10 mg tablet See Rx Instructions .Route 09/17/24 11/09/24 Rx .COMPLEX #270 tabs pantoprazole 40 mg tablet,delayed 40 mg PO QAM #30 tabs 10/18/24 11/09/24 Rx release sumatriptan succinate 50 mg tablet See Rx Instructions .Route 10/18/24 11/09/24 Rx .COMPLEX #27 tabs Concerta 36 mg tablet,extended 36 mg PO QAM #30 tabs 10/23/24 11/09/24 Rx release (methylphenidate HCl) fluticasone propionate 50 1 spray intranasal DAILY PRN 10/25/24 10/25/24 History mcg/actuation nasal allergy symptoms spray,suspension (Flonase Allergy Relief) sucralfate 1 gram tablet (Carafate) 1 g PO .COMPLEX PRN acid reflux 10/25/24 11/09/24 History Laboratory Tests 11/09/24 09:53 POC Urine HCG, Qual Negative (Negative) Patient hx anesthesia problems: none Family hx anesthesia problems: none Results Review: All pre-operative results and documents have been reviewed as part of the pre- operative evaluation. [facility] Past Medical History Medical History ADHD Acute telogen effluvium Bursitis of right hip GERD without esophagitis Herpes simplex without mention of complication Other ventral hernia without mention of obstruction or gangrene Surgical History Surgical History History of tonsillectomy Family History Family History Mother Depression Hypertension DVT (deep venous thrombosis) Father Hypertension Other Cerebrovascular accident Diabetes mellitus Family history of allergic disorder Family history of cardiovascular disease Social History Social History Smoking status: Never smoker Second hand tobacco smoke exposure: Yes Alcohol intake: current Alcohol use details: 2 per month Substance use: never Substance use type: does not use Lack of Transportation: No Lack of Food: Never True Current Housing: I Have Housing Concerned About Future Housing: No Difficulty Paying Gas/Electric Bills: No Difficulty Paying for Meds: No Currently Unemployed: No Education: Master's Degree or Higher Difficulty w/ Childcare or Family Care: No Living arrangements: with family Spiritual care concerns: No Anes - Eval Final PreProcedure Day of Procedure 11/09/24 10:10 Patient weight: normal Heart: tachycardia Lungs: clear to auscultation Airway: Mallampati scale class II Neurological: alert and oriented Last oral intake: >/= 8 hours ASA classification: III Emergent: no Anesthetic plan: proceed Anesthesia type and monitoring: general GIVS and standard monitoring Results Review: All pre-operative results and documents have been reviewed as part of the pre-op erative evaluation. Informed Consent: The patient's anesthetic plan and its attendant risks and benefits were discussed with the patient/family/POA. Questions were solicited and answers provided to the satisfaction of the patient/family/POA.
[2024-11-09 10:52] VITALS: BP 103/66; PULSE 100; RESP 15; O2SAT 100
[2024-11-09 11:02] VITALS: BP 101/72; PULSE 101; RESP 16; O2SAT 100
[2024-11-09 11:12] VITALS: BP 106/76; PULSE 89; RESP 16; O2SAT 100
== END 2024-11-09 11:23 | disposition home or self-care (01) ==
PROVIDERS: Anesthesiology; PCP Family Medicine; Visit Provider Internal Medicine Gastroenterology
PROC: 0DJ08ZZ Inspection of Upper Intestinal Tract, Via Natural or Artificial Opening Endoscopic (ICD-10-PCS; CPT 43239; principal; 2024-11-09 10:00)
DX: K21.00 Gastro-esophageal reflux disease with esophagitis, without bleeding (principal); K29.30 Chronic superficial gastritis without bleeding; F90.9 Attention-deficit hyperactivity disorder, unspecified type; Z98.890 Other specified postprocedural states; Z82.49 Family history of ischemic heart disease and other diseases of the circulatory system
CPT/HCPCS: 43239; 88305; J2003; J2704; J7120

== ENCOUNTER 2024-12-27 15:50 | Outpatient (CLI) | payer OTHER, SELFPAY ==
--- NOTE | ~2024-12-27 | XR_ITS ---
EXAMINATION: XR chest 2V 12/27/2024 16:04 INDICATION: Chronic cough PROCEDURE: 2 view chest COMPARISON: No prior studies for comparison. FINDINGS: The lungs are clear. The cardiomediastinal silhouette is within normal limits. There are no pleural effusions. There is no pneumothorax suspected. IMPRESSION: 1: NO ACUTE CARDIOPULMONARY DISEASE. Reviewed, dictated and finalized at location A.
== END 2024-12-27 15:51 | disposition home or self-care (01) ==
LOC: GOSHIMG 15:51
PROVIDERS: PCP Family Medicine; Visit Provider Family Medicine
DX: R05.3 Chronic cough (principal)
CPT/HCPCS: 71046

== ENCOUNTER 2025-04-03 10:54 | Outpatient (CLI) | payer OTHER, SELFPAY ==
--- NOTE | ~2025-04-03 | US_ITS ---
Pelvic ultrasound. Clinical History: Abdominal distention Technique: Realtime transabdominal scanning of the pelvis was performed. Color flow Doppler and Doppl er spectral analysis were performed. Findings: The uterus is anteverted. The endometrial stripe has a thickness of 3 mm. Questionable sma ll anterior wall fibroid measuring 1.8 cm in diameter. The right ovary measures 3.3 x 3.2 x 2.4 cm. Right ovarian cyst measures 2.2 cm in diameter. The left ovary measures 2.5 x 3.1 x 3.1 cm. No significant left ovarian or adnexal mass is seen. There is no evidence of free fluid in the cul de sac. Impression: 2.2 cm right ovarian cyst, of doubtful clinical significance. Questionable small intramural fibroid, as above. Reviewed, dictated and finalized at location M. Impression: 2.2 cm right ovarian cyst, of doubtful clinical significance. Questionable small intramural fibroid, as above.
== END 2025-04-03 10:55 | disposition home or self-care (01) ==
LOC: GOSHIMG 10:54
PROVIDERS: PCP Family Medicine; Visit Provider Family Medicine
DX: N83.291 Other ovarian cyst, right side (principal)
CPT/HCPCS: 76856